=== PATIENT | male | born 1990 | race African-American/Black ===

== ENCOUNTER 2022-03-23 13:37 | Emergency (ER) | payer SELFPAY ==
[2022-03-23] MEDS ORDERED: Ondansetron PF 4 MG/2 ML Vial ONE ×2 (14:06→14:07)
[2022-03-23] MEDS ORDERED: Ketorolac Tromethamine 30 MG/ML VIAL ONE (14:06)
[2022-03-23 14:12] LABS: #Eosinphils 0.1 10x3/uL (0.0-0.5); #Monocytes 0.5 10x3/uL (0.0-1.1); #Neutrophils 1.7 10x3/uL (1.5-8.4); %Basophils 0.4 % (0.0-2.0); %Eosinophils 2.2 % (0.0-6.0); %Lymphocytes 49.8 % (18.0-47.0); %Monocytes 9.8 % (0.0-10.0); %Neutrophils 37.8 % (40.0-75.0); Mean Corpuscular HGB CONC 32.9 g/dL (32.0-36.0); Mean Corpuscular Hemoglobin 27.1 pg (27.0-33.0); Mean Corpuscular Volume 82.4 fl (81.2-95.1); Mean Platelet Volume 10.2 fl (7.4-10.4); Platelet Count 215 10x3/uL (150-450); RBC Distribution Width 13.3 % (11.5-14.5); Red Blood Cell (RBC) Count 4.43 10x6/uL (4.32-5.72); White Blood Cell (WBC) Count 4.6 10x3/uL (3.5-10.5)
[2022-03-23 14:24] LABS: ALT (SGPT) 15 U/L (8-55); AST (SGOT) 15 U/L (5-34); Albumin 4.3 g/dL (3.5-5.0); Alkaline Phosphatase 95 U/L (40-110); Anion Gap 13 mmol/L (10-20); BUN (Urea Nitrogen) 13 mg/dL (8.9-20.6); Bilirubin, Total 2.2 mg/dL (0.2-1.2); Calc. Creatinine Clearance 0 mL/min (70-130); Calcium 8.9 mg/dL (7.8-10.44); Carbon Dioxide 23 mmol/L (22-29); Chloride 106 mmol/L (98-107); Estimated GFR 119; Globulin 3.1 g/dL (2.4-3.5); Glucose 155 mg/dL (70-105); Lipase 24 U/L (8-78); Potassium 4.2 mmol/L (3.5-5.1); Protein, Total 7.4 g/dL (6.0-8.3); Sodium 138 mmol/L (136-145)
== END 2022-03-23 15:11 | disposition home or self-care (01) ==
LOC: CSHERS 13:37
DX: R10.9 Unspecified abdominal pain (principal); R11.0 Nausea; R19.7 Diarrhea, unspecified; E11.9 Type 2 diabetes mellitus without complications; Z79.4 Long term (current) use of insulin
CPT/HCPCS: 80053; 83690; 85025; 96361; 96374; 96375; J1885; J2405

== ENCOUNTER 2022-09-06 12:31 | Emergency (ER) | payer SELFPAY ==
[2022-09-06 13:27] LABS: #Eosinphils 0.1 10x3/uL (0.0-0.5); #Monocytes 0.6 10x3/uL (0.0-1.1); #Neutrophils 2.6 10x3/uL (1.5-8.4); %Basophils 0.4 % (0.0-2.0); %Eosinophils 1.9 % (0.0-6.0); %Lymphocytes 29.8 % (18.0-47.0); %Monocytes 11.6 % (0.0-10.0); %Neutrophils 55.9 % (40.0-75.0); Hemoglobin 13.4 g/dL (13.5-17.5); Mean Corpuscular HGB CONC 31.7 g/dL (32.0-36.0); Mean Corpuscular Hemoglobin 26.4 pg (27.0-33.0); Mean Corpuscular Volume 83.4 fl (81.2-95.1); Mean Platelet Volume 10.7 fl (7.4-10.4); Platelet Count 195 10x3/uL (150-450); RBC Distribution Width 12.9 % (11.5-14.5); Red Blood Cell (RBC) Count 5.07 10x6/uL (4.32-5.72); White Blood Cell (WBC) Count 4.7 10x3/uL (3.5-10.5)
[2022-09-06 13:34] LABS: ALT (SGPT) 12 U/L (8-55); AST (SGOT) 12 U/L (5-34); Albumin 4.4 g/dL (3.5-5.0); Alkaline Phosphatase 105 U/L (40-110); Anion Gap 13 mmol/L (10-20); BUN (Urea Nitrogen) 19 mg/dL (8.9-20.6); Bilirubin, Total 1.1 mg/dL (0.2-1.2); Calc. Creatinine Clearance 0 mL/min (70-130); Calcium 9.4 mg/dL (7.8-10.44); Carbon Dioxide 24 mmol/L (22-29); Chloride 107 mmol/L (98-107); Estimated GFR 87; Globulin 3.3 g/dL (2.4-3.5); Glucose 223 mg/dL (70-105); Lipase 27 U/L (8-78); Potassium 4.1 mmol/L (3.5-5.1); Protein, Total 7.7 g/dL (6.0-8.3); Sodium 140 mmol/L (136-145)
[2022-09-06] MEDS ORDERED: Dicyclomine 20 MG TAB ONE (14:29)
[2022-09-06 15:48] LABS: Bilirubin Neg (Negative); Blood, Urine Negative (Negative); Clarity Clear (Clear); Glucose, Urine (Dipstick) >=1000 mg/dL (Negative); Ketone, Urine Negative (Negative); Leukocyte Negative (Negative); Nitrite Negative (Negative); Protein, Urine (Dipstick) 15 mg/dl (Neg-Trace); Urobilinogen Normal mg/dL (Less than 2)
== END 2022-09-06 16:24 | disposition home or self-care (01) ==
LOC: CSHERS 12:31
DX: E11.65 Type 2 diabetes mellitus with hyperglycemia (principal); R19.7 Diarrhea, unspecified; Z79.4 Long term (current) use of insulin
CPT/HCPCS: 80053; 81003; 83690; 85025; 99284

== ENCOUNTER 2022-11-05 08:32 | Emergency (ER) | payer SELFPAY ==
[2022-11-05 09:24] LABS: Actual Bicarbonate (HCO3v) 25.1 mEq/L (22-28); Base Excess 0.3 mEq/L (-2 - +2); Calcium, Ionized (venous) 1.09 mmol/L (1.16-1.32); Chloride (VBG) 96 mmol/L (98-106); Hematocrit-VBG 42 % (42.0-52.0); Hemoglobin (Hb) 14.3 g/dL (13.2-17.3); Potassium (VBG) 3.92 mmol/L (3.70-5.30); Puncture Site Other Site; RapidComm Collect By LAB; Sodium 132.5 mmol/L (133-146); pH (venous) 7.404 (7.32-7.43)
[2022-11-05 09:35] LABS: #Monocytes 0.4 10x3/uL (0.0-1.1); #Neutrophils 1.9 10x3/uL (1.5-8.4); %Basophils 0.5 % (0.0-2.0); %Eosinophils 1.1 % (0.0-6.0); %Lymphocytes 36.7 % (18.0-47.0); %Monocytes 10.8 % (0.0-10.0); %Neutrophils 50.6 % (40.0-75.0); Hemoglobin 13.4 g/dL (13.5-17.5); Mean Corpuscular HGB CONC 33.8 g/dL (32.0-36.0); Mean Corpuscular Hemoglobin 26.7 pg (27.0-33.0); Mean Platelet Volume 10.1 fl (7.4-10.4); Platelet Count 209 10x3/uL (150-450); Red Blood Cell (RBC) Count 5.01 10x6/uL (4.32-5.72); White Blood Cell (WBC) Count 3.7 10x3/uL (3.5-10.5)
[2022-11-05 09:42] LABS: ALT (SGPT) 9 U/L (8-55); AST (SGOT) 12 U/L (5-34); Albumin 4.3 g/dL (3.5-5.0); Alkaline Phosphatase 74 U/L (40-110); Anion Gap 18 mmol/L (10-20); BUN (Urea Nitrogen) 11 mg/dL (8.9-20.6); Bilirubin, Total 4.6 mg/dL (0.2-1.2); Calc. Creatinine Clearance 0 mL/min (70-130); Calcium 8.9 mg/dL (7.8-10.44); Carbon Dioxide 22 mmol/L (22-29); Chloride 97 mmol/L (98-107); Estimated GFR 120; Globulin 3.3 g/dL (2.4-3.5); Glucose 213 mg/dL (70-105); Lipase 13 U/L (8-78); Protein, Total 7.6 g/dL (6.0-8.3); Sodium 133 mmol/L (136-145)
[2022-11-05] MEDS ORDERED: Ketorolac Tromethamine 30 MG/ML VIAL ONE (10:55)
[2022-11-05 11:33] LABS: HBSAg Index 0.16 S/CO (0-0.99); Hep B Surf Ag Non-Reactive S/CO (NonReactive)
[2022-11-05 17:43] LABS: HBCM Index 0.06 S/CO (0-0.79); Hep A IgM AB Non-Reactive S/CO (NonReactive); Hep A IgM S/CO 0.15 S/CO (0-0.79); Hep C IgG Ab Non-Reactive S/CO (NonReactive); Hep C Index 0.11 S/CO (0-0.79); Hepatitis B Core IgM Abs Non-Reactive S/CO (NonReactive)
== END 2022-11-05 12:30 | disposition home or self-care (01) ==
LOC: CSHERS 08:32
DX: R11.2 Nausea with vomiting, unspecified (principal); E80.6 Other disorders of bilirubin metabolism; R10.9 Unspecified abdominal pain; E11.9 Type 2 diabetes mellitus without complications; Z87.891 Personal history of nicotine dependence
CPT/HCPCS: 36415; 76705; 80053; 80074; 82805; 83605; 83690; 85025; 87040; 96361; 96374; J1885